=== PATIENT | male | born 1950 ===

== ENCOUNTER 2016-09-21 17:41 | Inpatient (IN) | payer OTHER ==
[2016-09-21 17:59] VITALS: BMI 22.4
--- NOTE | 2016-09-21 18:29 | C.PDOC ---
History Of Present Illness 65 year old patient is brought to the ED by ambulance for possible altered mental status. History is limited and obtained from EMS and police. Policed were called when another person asked patient for change of $5.[address] house. Patient took the $5.00 bill and started walking away. Police found patient acting bizarre, so EMS was called as well. Patient was restrained because he was agitated and aggressive, but non-verbal. Upon arrival in the ED, patient was found to have a prayer book in [employer]. Concerned that the patient doesn't speak Persian, apple checker spoke in [employer] but he still did not respond. Review of systems cannot be obtained due to patient's inability to answer questions. Time Seen by Provider: 09/21/16 18:00 Chief Complaint (Nursing): Altered Mental Status History Per: EMS History/Exam Limitations: Clinical Condition Onset/Duration Of Symptoms: Mins (prior to arrival) Current Symptoms Are (Timing): Still Present Usual Baseline: Other (awake. alert. ) Exacerbating Factor(s): Unknown Past Medical History Reviewed: Historical Data, Nursing Documentation, Vital Signs Vital Signs: Last Vital Signs Temp 97.9 F 09/21/16 17:45 Pulse 74 09/21/16 19:30 Resp 14 09/21/16 19:30 BP 120/67 09/21/16 19:30 Pulse Ox 98 09/21/16 20:48 Family History: States: Unknown Family Hx - Social History Hx Alcohol Use: No (UNKNOWN) Hx Substance Use: No (UNKNOWN) - Immunization History Hx Tetanus Toxoid Vaccination: No (UNKNOWN) Hx Influenza Vaccination: No (UNKNOWN) Hx Pneumococcal Vaccination: No (UNKNOWN) Review Of Systems Review Of Systems: ROS cannot be obtained secondary to pt's inabilty to answer questions. Physical Exam - Physical Exam Appears: Non-toxic, No Acute Distress, Other (awake, alert, not responding to commands, looking around; 4 point restrained upon arrival due to combativeness) Skin: Warm, Other (right shoulder abrasions due to aggressiveness with the police) Head: Atraumatic, Normacephalic Neck: Normal ROM, Supple Chest: Symmetrical Cardiovascular: Rhythm Regular Respiratory: Normal Breath Sounds, No Rales, No Rhonchi, No Wheezing Back: Normal Inspection Extremity: Normal ROM Neurological/Psych: No Response To Commands ED Course And Treatment - Laboratory Results Result Diagrams: 09/21/16 18:16 09/21/16 18:16 Lab Interpretation: No Acute Changes Interpretation Of Abnormal: Urine WBC 11 with 1+ leukocyte esterase. ECG: Interpreted By Al ECG Rhythm: Sinus Rhythm ECG Interpretation: Normal O2 Sat by Pulse Oximetry: 98 (room air) Pulse Ox Interpretation: Normal - Radiology CXR: Interpreted by Al CXR Interpretation: Yes: No Acute Disease - CT Scan/US Head CT Other Rad Studies (CT/US): Read By Radiologist (Cynthia Arnold MD), Radiology Report Reviewed CT/US Interpretation: EXAM: CT Head Without Intravenous Contrast. CLINICAL HISTORY: 65 years old, male; Signs and symptoms; Altered mental status/memory loss; Additional info: AMS. TECHNIQUE: Axial computed tomography images of the head/brain without intravenous contrast. This CT exam. was performed using one or more of the following dose reduction techniques: automated exposure. control, adjustment of the mA and/or kV according to patient size, and/or use of iterative. reconstruction technique. EXAM DATE/TIME: 09/21/2016 6:07 PM. COMPARISON: There are no prior studies for comparison. FINDINGS: Brain: There is dilatation of sulci gyri and ventricles. Atrophic changes are greatest in the frontal and. temporal lobes. There is no midline shift. There is decreased attenuation in periventricular white. matter. There are no focal masses. There are no focal hemorrhages. Miles-white differentiation is. visualized. Ventricles: See above. Bones: Cranial vault is intact. Soft tissues: unremarkable. Sinuses: There is no acute sinusitis. Ears and mastoids : Middle ears and mastoids are unremarkable. Orbits: Orbital contents are unremarkable. IMPRESSION: Atrophy and small vessel disease, no bleed Reevaluation Time: 20:46 Reassessment Condition: Unchanged (Patient remains awake but is not conversational. he has remained calm. he has spoken 3 words, progressive, cancer and cigarettes.) - Physician Consult Information Time Consulting Physician Contacted: 20:46 Physician Contacted: Juan Mendez Jr. Outcome Of Conversation: He suggests patient be evaluated and admitted to psychiatry. Crisis asked to evaluate. Medical Decision Making Medical Decision Making: Plan: * Head CT * EKG * Labs * Chest x-ray Disposition - Disposition Disposition Time: 00:29 Condition: STABLE - Clinical Impression Clinical Impression: Aphasia - Scribe Statement The provider has reviewed the documentation as recorded by the Scribe Luisa Holcomb Provider Attestation: All medical record entries made by the Scribe were at my direction and personally dictated by me. I have reviewed the chart and agree that the record accurately reflects my personal performance of the history, physical exam, medical decision making, and the department course for this patient. I have also personally directed, reviewed, and agree with the discharge instructions and disposition. Physician Patient Turnover Patient Signed Over To: Elie Richards Handoff Comments: Pending crisis disposition.
[2016-09-21 18:37] LABS: BASO # 0.1 K/uL (0.0-0.2); BASO % 1.1 % (0.0-2.0); EOS # 0.4 K/uL (0.0-0.7); EOS % 4.6 % (0.0-4.0); HEMATOCRIT 41.1 % (35.0-51.0); LYMPH # 2.9 K/uL (1.0-4.3); MEAN CELL VOLUME 87.4 fL (80.0-94.0); MEAN CORPUSCULAR HEMOGLOBIN 28.7 pg (27.0-31.0); MEAN CORPUSCULAR HGB CONC 32.8 g/dL (33.0-37.0); MEAN PLATELET VOLUME 7.5 fL (7.2-11.7); MONO # 0.5 K/uL (0.0-0.8); MONO % 6.1 % (0.0-10.0); RED CELL DISTRIBUTION WIDTH 15.7 % (11.5-14.5); WHITE BLOOD COUNT 8.9 K/uL (4.8-10.8)
[2016-09-21 18:39] LABS: CHLORIDE 102 mmol/L (98-107); POTASSIUM 3.6 mmol/L (3.6-5.2); SODIUM 137 mmol/L (132-148)
[2016-09-21 18:41] LABS: BILIRUBIN,TOTAL 0.6 mg/dL (0.2-1.3); GFR AFRICAN-AMERICAN > 60
[2016-09-21 18:42] LABS: ALB/GLOB RATIO 1.5 (1.0-2.1); ALKALINE PHOSPHATASE 83 U/L (38-126); ALT/SGPT 24 U/L (21-72); AST/SGOT 25 U/L (17-59); BLOOD UREA NITROGEN 12 mg/dL (9-20); CALCIUM 9.4 mg/dl (8.6-10.4); CARBON DIOXIDE 20 mmol/L (22-30); GLUCOSE,RANDOM 135 mg/dL (75-110); TOTAL PROTEIN 7.5 g/dL (6.3-8.3)
[2016-09-21 18:43] LABS: ALCOHOL SERUM < 10 mg/dl (0-10)
[2016-09-21 20:24] LABS: RBC URINE < 1 /hpf (0-3); URINE BACTERIA OCC (<OCC); URINE BILIRUBIN NEGATIVE (NEGATIVE); URINE BLOOD NEGATIVE (NEGATIVE); URINE COLOR Yellow (YELLOW); URINE GLUCOSE (UA) NORMAL (Normal); URINE KETONE NEGATIVE (NEGATIVE); URINE LEUKOCYTE ESTERASE 1+ Leu/uL (Negative); URINE PROTEIN NEGATIVE (NEGATIVE); URINE UROBILINOGEN NORMAL mg/dL (0.2-1.0); WBC URINE 11 /hpf (0-5)
--- NOTE | 2016-09-21 20:43 | CT ---
EXAM: CT Head Without Intravenous Contrast CLINICAL HISTORY: 65 years old, male; Signs and symptoms; Altered mental status/memory loss; Additional info: AMS TECHNIQUE: Axial computed tomography images of the head/brain without intravenous contrast. This CT exam was performed using one or more of the following dose reduction techniques: automated exposure control, adjustment of the mA and/or kV according to patient size, and/or use of iterative reconstruction technique. EXAM DATE/TIME: 09/21/2016 6:07 PM COMPARISON: There are no prior studies for comparison. FINDINGS: Brain: There is dilatation of sulci gyri and ventricles. Atrophic changes are greatest in the frontal and temporal lobes. There is no midline shift. There is decreased attenuation in periventricular white matter. There are no focal masses. There are no focal hemorrhages. Miles-white differentiation is visualized. Ventricles: See above. Bones: Cranial vault is intact. Soft tissues: unremarkable Sinuses: There is no acute sinusitis. Ears and mastoids: Middle ears and mastoids are unremarkable. Orbits: Orbital contents are unremarkable. IMPRESSION: Atrophy and small vessel disease, no bleed
--- NOTE | 2016-09-22 09:46 | RAD ---
PROCEDURE: CHEST RADIOGRAPH, 1 VIEW HISTORY: Altered mental status COMPARISON: None available. FINDINGS: LUNGS: Mild venous congestion. Biapical pleural thickening with upper lobe granulomas. Mild patchy increased markings at the lung bases. PLEURA: No pneumothorax or pleural fluid seen. CARDIOVASCULAR: Tortuous aorta. OSSEOUS STRUCTURES: No significant abnormalities. VISUALIZED UPPER ABDOMEN: Normal. OTHER FINDINGS: None. IMPRESSION: Mild venous congestion. Biapical pleural thickening with upper lobe granulomas. Mild patchy increased markings at the lung bases.
--- NOTE | 2016-09-22 17:18 | CP.PCM.HP ---
Past Patient History - Past Medical History & Family History Past Medical History?: Yes - Past Social History Smoking Status: Never Smoked - CARDIAC Hx Cardiac Disorders: No - PULMONARY Hx Respiratory Disorders: No - NEUROLOGICAL Hx Alzheimer's Disease: Yes - HEENT Hx HEENT Problems: No - RENAL Hx Chronic Kidney Disease: No - ENDOCRINE/METABOLIC Hx Endocrine Disorders: Yes - HEMATOLOGICAL/ONCOLOGICAL Hx Blood Disorders: No - INTEGUMENTARY Hx Dermatological Problems: No - MUSCULOSKELETAL/RHEUMATOLOGICAL Hx Musculoskeletal Disorders: No Hx Falls: No - GASTROINTESTINAL Hx Gastrointestinal Disorders: No - GENITOURINARY/GYNECOLOGICAL Hx Genitourinary Disorders: No - PSYCHIATRIC Hx Anxiety: Yes Hx Substance Use: No (UNKNOWN) - SURGICAL HISTORY Hx Surgeries: No (UNKNOWN) - ANESTHESIA Hx Anesthesia: No (UNKNOWN) Meds Allergies/Adverse Reactions: Allergies Allergy/AdvReac Type Severity Reaction Status Date / Time No Known Allergies Allergy Verified 09/21/16 22:44 Physical Exam - Constitutional Appears: Well - Head Exam Head Exam: ATRAUMATIC, NORMAL INSPECTION, NORMOCEPHALIC - Eye Exam Eye Exam: EOMI, Normal appearance, PERRL Pupil Exam: NORMAL ACCOMODATION, PERRL - ENT Exam ENT Exam: Mucous Membranes Moist, Normal Exam - Neck Exam Neck exam: Positive for: Normal Inspection - Respiratory Exam Respiratory Exam: Decreased Breath Sounds - Cardiovascular Exam Cardiovascular Exam: REGULAR RHYTHM, +S1, +S2 - GI/Abdominal Exam GI & Abdominal Exam: Diminished Bowel Sounds, Soft - Rectal Exam Rectal Exam: Deferred Results - Vital Signs Recent Vital Signs: Last Vital Signs Temp 98.9 F 09/22/16 15:30 Pulse 88 09/22/16 15:30 Resp 20 09/22/16 15:30 BP 109/66 09/22/16 15:30 Pulse Ox 99 09/22/16 15:30 - Labs Result Diagrams: 09/21/16 18:16 09/21/16 18:16
[2016-09-22 22:19] LABS: HOMOCYSTEINE 7.7 umol/L (6.6-14.8)
[2016-09-22 22:43] LABS: THYROID STIMULATING HORMONE 0.72 mIU/L (0.46-4.68)
[2016-09-22 23:18] LABS: FOLATE 19.2 ng/mL
--- NOTE | 2016-09-22 23:24 | CARD ---
APPROVED REPORT EKG Measurement Heart [id number] <Conclusion> Normal sinus rhythm Normal ECG
--- NOTE | 2016-09-23 09:04 | CON ---
DATE: 09/23/2016 LOCATION: The patient is in room #358, bed B. ATTENDING PHYSICIAN: Arvind Holcomb MD CHIEF COMPLAINT: The patient was brought in to the [facility] with no clear history, except the patient was not able to speak. From neurological point of view, I was called in to evaluate him for further management. HISTORY OF PRESENT ILLNESS: The patient is a 65-year-old I[place]ian male who has been acting bizarre near the [facility]. The patient was aggressive, but nonverbal at the scene. The patient was brought into the Emergency Room of [facility]. From neurological point of view, I was called in to evaluate him for further management. PAST MEDICAL HISTORY: Unknown. PERSONAL HISTORY: Unknown. Not available. MEDICATIONS: Not available. PHYSICAL EXAMINATION: VITAL SIGNS: Blood pressure 120/75, mean arterial pressure of 90, respiratory rate 16, temperature afebrile. NECK: Supple. No carotid bruit. HEART: Sounds are regular. CHEST: Fair air entry. EXTREMITIES: Increased tone in all 4 extremities. NEUROLOGIC EXAMINATION: MENTAL STATUS EXAMINATION: He is awake, nonverbal, does not follow any commands. At times mumbling, voice not heard. CRANIAL NERVE EXAMINATION: Responds to visual threat. Pupils react to light. Extraocular movement roving conjugate gaze noted. No facial sensory deficit, no facial asymmetry. Mouth seems to be dry. MOTOR EXAMINATION: Spontaneously moving right more than his left side. Left arm is slightly decreased tone to compare with the right side. Both lower extremities have increased tone. DEEP TENDON REFLEXES: Absent throughout. Plantars are downgoing. SENSORY EXAMINATION: Responds to pain on both sides. GAIT AND COORDINATION: Deferred at this time. CONCLUSION: Upon reviewing history and neurological examination, the patient is presenting with bilateral cerebral dysfunction with aphasia. There is a possibility of possible infectious or inflammatory process. Focal aphasia is ill-defined at this time. WORKUP: CT of the head, no acute pathology noted. BLOOD WORKUP: WBC 8.9, hemoglobin 13.5, hematocrit 41.1, platelet 270. Sodium 137, potassium 3.6, chloride 102, bicarbonate 20, BUN 12, creatinine 0.8, glucose 116, calcium 9.4. Liver functions are normal. B12 of 344, folate 19.2. Homocysteine 7.7. TSH 0.72. Urine shows WBC 11. Drug tox screen is negative. RPR is negative. CONCLUSION: Continue conservative management. Keep hydration. Proper antibiotic for urinary tract infection. The patient also recommended to have MRI of the brain, electroencephalogram and a carotid Doppler is also recommended to rule out any stroke process or any space occupying lesion. In the meantime, encourage intake of p.o. fluids and feeding should be with assistance. Rafa Weaver MD cc: [id number] TT: 09/23/2016 09:03:41 Confirmation # [id number] Dictation # [id number] mn AARTI
--- NOTE | 2016-09-23 12:12 | CP.PCM.PN ---
Subjective - Date & Time of Evaluation Date of Evaluation: 09/23/16 Time of Evaluation: 08:00 - Subjective Subjective: clinically same Objective - Vital Signs/Intake and Output Vital Signs (last 24 hours): Temp Pulse Resp BP Pulse Ox 98 F 78 20 114/73 98 09/23/16 00:00 09/23/16 00:00 09/23/16 00:00 09/23/16 10:19 09/23/16 00:00 - Medications Medications: Current Medications Aspirin (Aspirin Chewable) 81 mg PO DAILY [facility] Last Admin: 09/23/16 10:19 Dose: Not Given Enalapril Maleate (Vasotec) 2.5 mg PO DAILY [facility] Last Admin: 09/23/16 10:19 Dose: Not Given Heparin Sodium (Porcine) (Heparin) 5,000 units SC Q12 [facility] Ceftriaxone Sodium 1 gm/ (Sodium Chloride) 100 mls @ 100 mls/hr IVPB DAILY [facility] Last Admin: 09/23/16 09:52 Dose: 100 mls/hr Lorazepam (Ativan) 1 mg IVP Q6H PRN PRN Reason: Anxiety Last Admin: 09/23/16 08:12 Dose: 1 mg Metformin HCl (Glucophage) 850 mg PO BID [facility] Last Admin: 09/23/16 10:19 Dose: Not Given Rosuvastatin Calcium (Crestor) 5 mg PO HS [facility] Last Admin: 09/22/16 22:00 Dose: Not Given - Constitutional Appears: Well - Head Exam Head Exam: ATRAUMATIC, NORMAL INSPECTION, NORMOCEPHALIC - Eye Exam Eye Exam: EOMI, Normal appearance, PERRL Pupil Exam: NORMAL ACCOMODATION, PERRL - ENT Exam ENT Exam: Mucous Membranes Moist, Normal Exam - Neck Exam Neck Exam: Full ROM, Normal Inspection. absent: Lymphadenopathy - Respiratory Exam Respiratory Exam: Decreased Breath Sounds - Cardiovascular Exam Cardiovascular Exam: REGULAR RHYTHM, +S1, +S2 - GI/Abdominal Exam GI & Abdominal Exam: Soft, Diminished Bowel Sounds - Rectal Exam Rectal Exam: Deferred
--- NOTE | 2016-09-24 10:16 | CP.PCM.PN ---
Subjective - Date & Time of Evaluation Date of Evaluation: 09/24/16 Time of Evaluation: 08:00 - Subjective Subjective: clinically same Objective - Vital Signs/Intake and Output Vital Signs (last 24 hours): Temp Pulse Resp BP Pulse Ox 97.1 F L 92 H 20 128/82 97 09/24/16 00:32 09/24/16 00:32 09/24/16 00:32 09/24/16 09:34 09/24/16 00:32 Intake and Output: 09/24/16 09/24/16 06:59 18:59 Intake Total 540 Balance 540 - Medications Medications: Current Medications Aspirin (Aspirin Chewable) 81 mg PO DAILY [facility] Last Admin: 09/24/16 09:30 Dose: 81 mg Enalapril Maleate (Vasotec) 2.5 mg PO DAILY [facility] Last Admin: 09/24/16 09:34 Dose: 2.5 mg Heparin Sodium (Porcine) (Heparin) 5,000 units SC Q12 [facility] Last Admin: 09/24/16 09:30 Dose: 5,000 units Ceftriaxone Sodium 1 gm/ (Sodium Chloride) 100 mls @ 100 mls/hr IVPB DAILY [facility] Last Admin: 09/24/16 09:31 Dose: 100 mls/hr Lorazepam (Ativan) 1 mg IVP Q6H PRN PRN Reason: Anxiety Last Admin: 09/23/16 22:04 Dose: 1 mg Metformin HCl (Glucophage) 850 mg PO BID [facility] Last Admin: 09/24/16 09:29 Dose: 850 mg Rosuvastatin Calcium (Crestor) 5 mg PO HS [facility] Last Admin: 09/23/16 22:05 Dose: 5 mg - Constitutional Appears: Well - Head Exam Head Exam: ATRAUMATIC, NORMAL INSPECTION, NORMOCEPHALIC - Eye Exam Eye Exam: EOMI, Normal appearance, PERRL Pupil Exam: NORMAL ACCOMODATION, PERRL - ENT Exam ENT Exam: Mucous Membranes Moist, Normal Exam - Neck Exam Neck Exam: Full ROM, Normal Inspection. absent: Lymphadenopathy - Respiratory Exam Respiratory Exam: Decreased Breath Sounds - Cardiovascular Exam Cardiovascular Exam: REGULAR RHYTHM, +S1, +S2 - GI/Abdominal Exam GI & Abdominal Exam: Soft, Diminished Bowel Sounds - Rectal Exam Rectal Exam: Deferred
--- NOTE | 2016-09-24 15:56 | CARD ---
APPROVED REPORT EXAM: Two-dimensional and M-mode echocardiogram with Doppler and color Doppler. Other Information Quality : GoodRhythm : NSR INDICATION CARDIOEMBOLIC SOURCE RISK FACTORS Diabetes LEFT VENTRICLE The left ventricle is normal size. There is normal left ventricular wall thickness. Left ventricle systolic function is normal. The Ejection Fraction is >70%. There is normal LV segmental wall motion. The left ventricular diastolic function is normal. RIGHT VENTRICLE The right ventricle is normal size. There is normal right ventricular wall thickness. The right ventricular systolic function is normal. ATRIA The left atrium size is normal. The right atrium size is normal. The interatrial septum is intact with no evidence for an atrial septal defect. AORTIC VALVE The aortic valve is normal in structure. No aortic regurgitation is present. There is no aortic valvular stenosis. There is no aortic valvular vegetation. MITRAL VALVE The mitral valve is normal in structure. There is no evidence of mitral valve prolapse. There is no mitral valve stenosis. Mitral regurgitation is mild. TRICUSPID VALVE The tricuspid valve is normal in structure. There is mild tricuspid regurgitation. Right ventricular systolic pressure is estimated at less than 30 mmHg. There is no pulmonary hypertension. PULMONIC VALVE The pulmonic valve is not well visualized. There is no pulmonic valvular regurgitation. GREAT VESSELS The aortic root is normal in size. PERICARDIAL EFFUSION There is no significant pericardial effusion. <Conclusion> Left ventricle systolic function is normal. The Ejection Fraction is >70%. No aortic regurgitation is present. Mitral regurgitation is mild. There is mild tricuspid regurgitation. There is no pulmonary hypertension. There is no pulmonic valvular regurgitation.
--- NOTE | 2016-09-26 13:37 | VASCLAB ---
PROCEDURE: HISTORY: stenosis COMPARISON: None available. TECHNIQUE: Grayscale and duplex Doppler evaluation of the cervical carotid and vertebral arteries were performed. The common carotid, carotid bifurcations and cervical Internal Carotid Artery (ICA) and proximal External Carotid Artery (ECA) were evaluated. The vertebral arteries were evaluated for gross patency and flow direction. Report prepared by Pablo Herndon, BS, RVT FINDINGS: RIGHT CAROTID ARTERIES: 1. Common Carotid Artery: No significant focal plaque formation of the right common carotid artery. Maximum Peak Systolic velocity: 54 cm/sec: End-diastolic velocity 16 cm/sec. 2. Carotid Bifurcation: plaque formation. Maximum Peak Systolic velocity: 39 cm/sec: End-diastolic velocity 15 cm/sec. 3. Internal Carotid Artery: Plaque description: 3.1. Proximal Segment: Peak systolic velocity 62 cm/sec: End-diastolic velocity 19 cm/sec - % stenosis 0-15% 3.2. Middle Segment: Peak systolic velocity 68 cm/sec: End-diastolic velocity 27 cm/sec - % stenosis 0-15% 3.3. Distal Segment: Peak systolic velocity 92 cm/sec: End-diastolic velocity 32 cm/sec - % stenosis 0-15% 4. External Carotid Artery: No significant focal plaque formation. Peak systolic velocity 56 cm/sec 5. ICA/CCA Ratio: 1.7 LEFT CAROTID ARTERIES: 1. Common Carotid Artery: No significant focal plaque formation of the left common carotid artery. Maximum Peak Systolic velocity: 81 cm/sec: End-diastolic velocity 26 cm/sec. 2. Carotid Bifurcation: plaque formation. Maximum Peak Systolic velocity: 71 cm/sec: End-diastolic velocity 21 cm/sec. 3. Internal Carotid Artery: Plaque description: 3.1. Proximal Segment: Peak systolic velocity 70 cm/sec: End-diastolic velocity 24 cm/sec - % stenosis 0-15% 3.2. Middle Segment: Peak systolic velocity 76 cm/sec: End-diastolic velocity 27 cm/sec - % stenosis 0-15% 3.3. Distal Segment: Peak systolic velocity 107 cm/sec: End-diastolic velocity 25 cm/sec - % stenosis 0-15% 4. External Carotid Artery: No significant focal plaque formation. Peak systolic velocity 72 cm/sec 5. ICA/CCA Ratio: 1.3 VERTEBRAL ARTERIES: 1. Right Vertebral Artery: The right vertebral artery flow direction is antegrade. 2. Left Vertebral Artery: The left vertebral artery flow direction is antegrade. OTHER FINDINGS: 1. Right Brachial Blood pressure: mmHg. 2. Left Brachial Blood pressure: mmHg. IMPRESSION: RIGHT: Duplex scan does not suggest hemodynamically significant stenosis of the right extracranial carotid arteries. LEFT: Duplex scan does not suggest hemodynamically significant stenosis of the left extracranial carotid arteries.
--- NOTE | 2016-09-26 15:57 | CP.PCM.PN ---
Subjective - Date & Time of Evaluation Date of Evaluation: 09/26/16 Time of Evaluation: 08:00 - Subjective Subjective: clinically same Objective - Vital Signs/Intake and Output Vital Signs (last 24 hours): Temp Pulse Resp BP Pulse Ox 97.9 F 89 18 110/70 99 09/26/16 08:00 09/26/16 08:00 09/26/16 08:00 09/26/16 10:08 09/26/16 08:00 Intake and Output: 09/26/16 09/26/16 06:59 18:59 Intake Total 550 600 Balance 550 600 - Medications Medications: Current Medications Aspirin (Aspirin Chewable) 81 mg PO DAILY [facility] Last Admin: 09/26/16 10:05 Dose: 81 mg Enalapril Maleate (Vasotec) 2.5 mg PO DAILY [facility] Last Admin: 09/26/16 10:08 Dose: 2.5 mg Ceftriaxone Sodium 1 gm/ (Sodium Chloride) 100 mls @ 100 mls/hr IVPB DAILY [facility] Last Admin: 09/26/16 10:06 Dose: 100 mls/hr Lorazepam (Ativan) 1 mg IVP Q4H PRN PRN Reason: Anxiety Last Admin: 09/26/16 11:47 Dose: 1 mg Metformin HCl (Glucophage) 850 mg PO BID [facility] Last Admin: 09/26/16 10:06 Dose: 850 mg Rosuvastatin Calcium (Crestor) 5 mg PO HS [facility] Last Admin: 09/25/16 22:21 Dose: 5 mg - Constitutional Appears: Well - Head Exam Head Exam: ATRAUMATIC, NORMAL INSPECTION, NORMOCEPHALIC - Eye Exam Eye Exam: EOMI, Normal appearance, PERRL Pupil Exam: NORMAL ACCOMODATION, PERRL - ENT Exam ENT Exam: Mucous Membranes Moist, Normal Exam - Neck Exam Neck Exam: Full ROM, Normal Inspection. absent: Lymphadenopathy - Respiratory Exam Respiratory Exam: Decreased Breath Sounds - Cardiovascular Exam Cardiovascular Exam: REGULAR RHYTHM, +S1, +S2 - GI/Abdominal Exam GI & Abdominal Exam: Soft, Diminished Bowel Sounds - Rectal Exam Rectal Exam: Deferred
[2016-09-26 16:14] VITALS: RESP 20
[2016-09-27 08:35] VITALS: TEMP 98.4
[2016-09-27 10:10] VITALS: BP 124/81
--- NOTE | 2016-09-27 13:34 | CP.PCM.PN ---
Subjective - Date & Time of Evaluation Date of Evaluation: 09/27/16 Time of Evaluation: 13:26 - Subjective Subjective: 65 Y/O MALE SEEN AND EXAMINED, WITH UNKNOWN PAST MEDICAL HISTORY, WAS ADMITTED HERE FOR CONFUSION, MEMORY LOSS, ACTING BIZZARE NEAR THE COURTHOUSE. PT IS AWAKE , NON-VERBAL, DOES NOT FOLLOW COMMANDS, PT SEEN BY DR BILLINGS, CT HEAD - NO ACUTE FINDING, PT IS CONFUSED, UNABLE TO OBTAIN MRI DESPITE 2 ATTEMPTS ON 09/26 AND , OTHERWISE PT REMAIN STABLE, RESP EASY AND UNLABORED, NO ACUTE DISTRESS, PT CLEARED FOR D/C TO [facility] TODAY PER DR BILLINGS AND DR LEBLANC, OUTPATIENT MRI PER DR BILLINGS. Objective - Vital Signs/Intake and Output Vital Signs (last 24 hours): Temp Pulse Resp BP Pulse Ox 98.4 F 20 L 20 124/81 97 09/27/16 08:00 09/27/16 08:00 09/27/16 08:00 09/27/16 10:09 09/27/16 08:00 Intake and Output: 09/27/16 09/27/16 06:59 18:59 Intake Total 200 Balance 200 - Medications Medications: Current Medications Aspirin (Aspirin Chewable) 81 mg PO DAILY [facility] Last Admin: 09/27/16 10:09 Dose: 81 mg Enalapril Maleate (Vasotec) 2.5 mg PO DAILY [facility] Last Admin: 09/27/16 10:09 Dose: 2.5 mg Heparin Sodium (Porcine) (Heparin) 5,000 units SC Q12H [facility] Last Admin: 09/27/16 10:10 Dose: 5,000 units Ceftriaxone Sodium 1 gm/ (Sodium Chloride) 100 mls @ 100 mls/hr IVPB DAILY [facility] Last Admin: 09/27/16 10:09 Dose: 100 mls/hr Lorazepam (Ativan) 1 mg IVP Q4H PRN PRN Reason: Anxiety Last Admin: 09/27/16 10:08 Dose: 1 mg Metformin HCl (Glucophage) 850 mg PO BID [facility] Last Admin: 09/27/16 10:09 Dose: 850 mg Rosuvastatin Calcium (Crestor) 5 mg PO HS [facility] Last Admin: 09/26/16 21:07 Dose: 5 mg
[2016-09-27 14:17] VITALS: PULSE 65; O2SAT 99
--- NOTE | 2016-09-27 15:20 | CP.PCM.PN ---
Subjective - Date & Time of Evaluation Date of Evaluation: 09/27/16 Time of Evaluation: 08:00 - Subjective Subjective: clinically same Objective - Vital Signs/Intake and Output Vital Signs (last 24 hours): Temp Pulse Resp BP Pulse Ox 98.4 F 65 20 124/81 99 09/27/16 08:00 09/27/16 13:15 09/27/16 08:00 09/27/16 10:09 09/27/16 13:15 Intake and Output: 09/27/16 09/27/16 06:59 18:59 Intake Total 200 Balance 200 - Medications Medications: Current Medications Aspirin (Aspirin Chewable) 81 mg PO DAILY [facility] Last Admin: 09/27/16 10:09 Dose: 81 mg Enalapril Maleate (Vasotec) 2.5 mg PO DAILY [facility] Last Admin: 09/27/16 10:09 Dose: 2.5 mg Heparin Sodium (Porcine) (Heparin) 5,000 units SC Q12H [facility] Last Admin: 09/27/16 10:10 Dose: 5,000 units Ceftriaxone Sodium 1 gm/ (Sodium Chloride) 100 mls @ 100 mls/hr IVPB DAILY [facility] Last Admin: 09/27/16 10:09 Dose: 100 mls/hr Lorazepam (Ativan) 1 mg IVP Q4H PRN PRN Reason: Anxiety Last Admin: 09/27/16 13:20 Dose: 1 mg Metformin HCl (Glucophage) 850 mg PO BID [facility] Last Admin: 09/27/16 10:09 Dose: 850 mg Rosuvastatin Calcium (Crestor) 5 mg PO HS [facility] Last Admin: 09/26/16 21:07 Dose: 5 mg - Constitutional Appears: Well - Head Exam Head Exam: ATRAUMATIC, NORMAL INSPECTION, NORMOCEPHALIC - Eye Exam Eye Exam: EOMI, Normal appearance, PERRL Pupil Exam: NORMAL ACCOMODATION, PERRL - ENT Exam ENT Exam: Mucous Membranes Moist, Normal Exam - Neck Exam Neck Exam: Full ROM, Normal Inspection. absent: Lymphadenopathy - Respiratory Exam Respiratory Exam: Decreased Breath Sounds - Cardiovascular Exam Cardiovascular Exam: REGULAR RHYTHM, +S1, +S2 - GI/Abdominal Exam GI & Abdominal Exam: Soft, Diminished Bowel Sounds - Rectal Exam Rectal Exam: Deferred
--- NOTE | 2016-09-28 22:38 | EEG ---
DATE: 09/26/2016 This is a 16-channel electroencephalogram of awake and drowsy adult. During the study, photic stimul ation was performed. Hyperventilation was not performed. The resting electroencephalogram consists of 20-30 microvolt fast beta activities noted in the pariet al and occipital leads. Later this activity somewhat decreased in amplitude, shows diffuse 2-3 Hz de lta activity seen, which is consistent with early drowsiness. Photic stimulation did not evoke drivi ng response noted at 2-20 Hz. IMPRESSION: This is abnormal electroencephalogram because of persistent slowing throughout the recor d suggestive of bilateral cerebral dysfunction. This is probably secondary to metabolic vascular or degenerative process. Please correlate the finding with the neurological and radiological studies. However, during the study, neither electroencephalographic paroxysmal activities nor focal slowing no gordo. Rafa Weaver MD cc: [id number] TT: 09/28/2016 22:37:47 Confirmation # [id number] Dictation # [id number] erika
== END 2016-09-27 15:30 | disposition designated cancer center or children's hospital (05) | DRG 65 ==
LOC: C.ER 17:41 → C.9OBSV 09-22 01:36 → C.9E 09-22 10:24 → OBSVTOIN 09-22 10:24 → C.6T 09-22 13:03 → C.3T 09-22 22:54
PROVIDERS: ADMIT Internal Medicine Nephrology; ATTEND Internal Medicine Nephrology
DX: R42 Dizziness and giddiness (principal); G93.89 Other specified disorders of brain; N39.0 Urinary tract infection, site not specified; R47.01 Aphasia